=== PATIENT | female | born 1955 | race Caucasian/White ===

== ENCOUNTER → 2018-03-02 | Outpatient (CLI) | payer OTHER ==
[~2018-03-02] MED LIST: MULT-35 PO
--- NOTE | 2018-03-02 12:57 | Diagnostic Imaging Report ---
INDICATION: Routine screening. COMPARISON: 03/27/2016 and 10/04/2014. TECHNIQUE: 2D and 3D bilateral screening mammography was performed with CAD. FINDINGS: Scattered fibroglandular densities are identified bilaterally. The parenchymal pattern is stable. No mass or malignant appearing microcalcifications are seen. The axillae are unremarkable. IMPRESSION: No mammographic features suspicious for malignancy are identified. ACR BI-RADS Category 1: Negative. Result letter will be mailed to the patient. Note: At least 10% of breast cancer is not imaged by mammography. Dictated by: Dictated on workstation # [id number]
== END ==
LOC: RAD 07:25
PROVIDERS: ATTEND Nurse Practitioner Family
DX: Z12.31 Encounter for screening mammogram for malignant neoplasm of breast (principal)
CPT/HCPCS: 77067

== ENCOUNTER 2022-11-27 05:33 | Outpatient (CLI) | payer OTHER ==
[~2022-11-27] VITALS: Ht 177.8 cm; Wt 106.8 kg
[2022-12-11] MEDS ORDERED: LACT1CAP72 PO (14:13)
== END 2022-12-11 14:17 | disposition home or self-care (01) ==
LOC: PREOP 05:33
PROVIDERS: ATTEND Surgery
DX: Z01.818 Encounter for other preprocedural examination (principal)

== ENCOUNTER 2022-12-24 07:35 | Day surgery (SDC) | payer OTHER ==
[~2022-12-24] VITALS: Ht 177.8 cm; Wt 106.8 kg
[~2022-12-24 07:35] MED LIST changes: +LACT1CAP72 PO
[2022-12-24] MEDS ORDERED: LACTATED RINGERS 1,000 ML 1,000 ML IV STA (07:50)
[2022-12-24 08:00] VITALS: BP 125/86
[2022-12-24] MEDS ORDERED: MIDAZOLAM INJ 2 MG/2 ML VIAL ONE (08:34)
[2022-12-24 09:20] VITALS: BP 107/58
--- NOTE | 2022-12-24 09:22 | Progress Note-Post Operative ---
Post-Operative Progess Note Surgeon (s)/Flexo Folder Gluer Operator (s) Surgeon ESME WYATT DO Flexo Folder Gluer Operator: none Pre-Operative Diagnosis hx of polyps Post-Operative Diagnosis colon poylp Procedure & Operative Findings Date of Procedure 12/24/22 Procedure Performed/Findings colonoscopy with hot biopsy poylpectomy x 1 Anesthesia Type per MEDICAL EXAMINER Estimated Blood Loss Estimated blood loss (mL): none Specimens/Packing Specimens Removed transverse colon polyp ESME WYATT DO Dec 24, 2022 09:22
--- NOTE | 2022-12-24 09:23 | Discharge Inst-Simple/Standard ---
Discharge Inst-Standard Patient Instructions/Follow Up Plan of Care/Instructions/FU: love 2 weeks Activity as Tolerated: Yes Discharge Diet: Regular Diet ESME WYATT DO Dec 24, 2022 09:23
[2022-12-24 09:25] VITALS: BP 112/67
[2022-12-24 10:00] VITALS: BP 112/67
--- NOTE | 2022-12-24 13:29 | Anesthesia-General Post-Op ---
MAC Patient Condition Mental Status/LOC: Same as Preop Cardiovascular: Satisfactory Nausea/Vomiting: Absent Respiratory: Satisfactory Pain: Controlled Complications: Absent Post Op Complications Complications None Follow Up Care/Instructions Patient Instructions None needed. Anesthesiology Discharge Order Discharge Order Patient is doing well, no complaints, stable vital signs, no apparent adverse anesthesia problems. No complications reported per nursing. SOLEDAD BELLAMY CRNA Dec 24, 2022 13:29
--- NOTE | 2022-12-24 16:09 | OPERATIVE REPORT ---
DATE OF SERVICE: 12/24/2022 PREOPERATIVE DIAGNOSIS: Screening colonoscopy. POSTOPERATIVE DIAGNOSIS: Transverse colon polyp. PROCEDURE: Colonoscopy with hot biopsy polypectomy. SURGEON: Esme Costello DO ANESTHESIA: Per ENVIRONMENTAL TECH. ESTIMATED BLOOD LOSS: None. COMPLICATIONS: None. INDICATIONS: The patient is a 67-year-old female, needing screening colonoscopy. She understands risks and benefits of procedure and wishes to proceed. Consent was signed in chart. DESCRIPTION OF PROCEDURE: The patient was taken to the endoscopy suite, placed in left lateral recumbent position. Timeout was performed. Digital rectal exam was performed. No palpable polyps, masses or ulcerations. Scope was inserted in the rectum, advanced all the way to the cecum with minimal difficulty. Prep was adequate. Scope was then slowly retracted back. No polyps, masses or ulcerations in the cecum, ascending colon. In the transverse colon, small polyp was present, which hot biopsy polypectomy was performed. Scope was then continuously retracted back. No polyps, masses or ulcerations were in the transverse and descending and sigmoid colon. Once in the rectum, scope was retroflexed noting no other pathology. Scope was returned to its normal position, slowly withdrawn until completely removed. The patient tolerated the procedure well without any complications, taken to recovery room in stable condition. RECOMMENDATIONS: The patient will follow up on pathology in 2 weeks. Repeat colonoscopy in 5 years. Any issues before that, be seen at that time. Job ID: [id number] DocumentID: [id number] Dictated Date: 12/24/2022 09:22:14 Top Bottom Attaching Machine Operator Date: 12/24/2022 16:07:00 Dictated By: ESME COSTELLO DO
== END 2022-12-24 10:07 | disposition home or self-care (01) ==
LOC: ENDO 07:35
PROVIDERS: ATTEND Surgery
DX: Z12.11 Encounter for screening for malignant neoplasm of colon (principal); K63.5 Polyp of colon